=== PATIENT | female | born 1985 | race Caucasian/White ===

== ENCOUNTER 2018-09-22 23:36 | Emergency (ER) | payer SELFPAY ==
[2018-09-22 23:38] VITALS: PULSE 69; RESP 16; TEMP 36.6; O2SAT 100; BMI 27.3
[2018-09-22 23:47] VITALS: BP 113/83
--- NOTE | 2018-09-22 23:48 | RAD_ITS ---
HISTORY: TAILBONE PAIN FROM A FALL DOWN THE STAIRS A COUPLE DAYS AGO COMPARISON: None FINDINGS: XR Sacrum/Coccyx 3 views No fracture or acute osseous abnormality. No bony lesion seen. Mild anterior angulation of the coccyx, not unusual. SI joints appear preserved. No bony erosions. Multiple pelvic phleboliths. Chronic limbus type vertebra of the L5 vertebra. RAD/Sacrum-Coccyx min 2 Views IMPRESSION: Negative exam. No fracture seen. at 0136 Reported and signed by: Alexis Watts MD Electronically Signed: Alexis Watts, at 1:35 EDT Tel , Service support ,
--- NOTE | 2018-09-23 01:41 | ED.VISSUMM ---
- ER Visit Summary Date of Service: 09/23/18 Chief Complaint: Possible tailbone fracture History of Present Illness: The patient is a 33 F who presents because she is concerned she may have broken her tailbone. 5 days ago while going down the steps she fell. She landed into a seated position and then went all the way down the steps. She complains of isolated pain at her tailbone no other injuries. She denies any extremity injuries. No head injury. Physical Examination: Afebrile vitals unremarkable Heart regular rate and rhythm No respiratory distress Patient has coccygeal tenderness no lumbar tenderness Normal strength and sensation of the lower extremities Test Results: X-rays of the sacrum and coccyx were read as normal by radiology however on my review on the AP coccyx film I do believe there is a coccyx fracture. Emergency Department Course and Treatment: X-rays as above. On my review I do believe the patient has a coccyx fracture. This is managed supportively. She was advised on supportive care. She understands to return for new or worsening symptoms and was discharged home. Treatment Plan: [] Disposition: Discharge Impression: Coccyx fracture This note was generated with [email or web address] dictation software. It may contain incorrect words, spelling, and punctuation that were not noted in review of the chart prior to signing ED Disposition - Plan for ED Patient: Referrals: Mando Grover MD [Primary Care Provider] -
--- NOTE | 2018-09-23 01:43 | ED.DEP ---
ED Disposition - Plan for ED Patient: Instructions: ED Fx Coccyx Referrals: Mando Grover MD [Primary Care Provider] -
[2018-09-23 01:54] VITALS: BP 118/78; PULSE 89; RESP 16; O2SAT 100
== END 2018-09-23 01:55 | disposition home or self-care (01) ==
LOC: ED 23:56
PROVIDERS: Emergency Provider Emergency Medicine; Family Provider Family Medicine; PCP Family Medicine
DX: S32.2XXA Fracture of coccyx, initial encounter for closed fracture (principal); W10.9XXA Fall (on) (from) unspecified stairs and steps, initial encounter; Y93.9 Activity, unspecified; Y92.89 Other specified places as the place of occurrence of the external cause; Y99.9 Unspecified external cause status; Z72.0 Tobacco use
CPT/HCPCS: 72220; 99282

== ENCOUNTER → 2020-08-21 14:44 | Outpatient (CLI) | payer BC, SELFPAY ==
--- NOTE | 2020-08-21 14:49 | RAD_ITS ---
EXAM: XR LUMBOSACRAL SPINE COMPLETE WITH FLEXION/EXTENSION, 6 OR MORE VIEWS CLINICAL INDICATION: LOW BACK PAIN TECHNIQUE: Lateral, frontal, oblique and lateral flexion/extension views of the lumbar spine and sacrum. This report was created using [employer] report [employer] technology. COMPARISON: 08/23/2016. FINDINGS: VERTEBRAE: Grade 1 anterolisthesis of L5-S1 likely due to L5 spondylolysis similar on flexion, extension and neutral views. Normal variant limbus vertebral body of L5. Preserved vertebral body height. No fracture. Preservation of the normal lumbar lordosis. Mild levoscoliosis. DISC SPACES: Mild disc space narrowing at L5-S1 but the remaining disc levels are preserved. GASTROINTESTINAL TRACT: Unremarkable as visualized. Included bowel gas pattern is non-obstructive. OTHER FINDINGS: Lower level facet arthropathy. 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 Degenerative disc disease L5-S1 with facet arthropathy. Stable. Electronically Signed: Wes Rosales MD ([place]) at 14:14 EDT , Service support ,
== END ==
LOC: MTRAD 14:47
PROVIDERS: PCP Family Medicine; Referring Provider Family Medicine; Visit Provider Family Medicine
DX: M54.17 Radiculopathy, lumbosacral region (principal); M54.5 Low back pain
CPT/HCPCS: 72120

== ENCOUNTER 2020-10-20 09:30 | Outpatient (RCR) | payer BC, SELFPAY ==
--- NOTE | 2020-09-08 10:09 | HP.PTEVAL_ITS ---
Patient's Visit Information VINEET DUBOIS is a 35 year old F referred to Physical Therapy by Dr. Shadi Marie DO with a diagnosis of LUMBAR. Date of Evaluation: 09/08/20 Physical Therapist: Irina Bennett, PT, Cert MDT - Visit Plan Frequency: 2-3x /Week Duration: 4-6 Weeks Plan: POSTURE CORRECTION/STRENGTHENING, INSTRUCTION IN APPROPRIATE BODY MECHANICS AND ACTIVITY MODIFICATIONS. DLS STARTING WITH A NEUTRAL SPINE PROGRESSING ROM TOLERATED. SEBLE LE ROM, STRETCHING AND STRENGTHENING. HEP INSTRUCTION. 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 WORK DOES NOT INVOLVE LIFTING AND TWISTING BUT DOES HAVE TO BEND OVER CRIB. ONE OF CLIENTS IS A CHILD ON A VENT. Disability: NO. Present symptoms: LOW BACK PAIN. LEFT THIGH AND LEG PAIN. LEFT BUTTOCK AND WHOLE ENTIRE LEG GOES NUMB. NO RIGHT LE SX'S EXCEPT RIGHT BUTTOCK AREA PAIN. Present since: L LE SX'S STARTED ABOUT 18 MONTHS AGO. H/O LBP IS CHRONIC AND PAST EPISODES OF RIGHT LE SCIATICA. Pain Scale: WORST 6/10, LEAST 0/10. Currently: 0/10. Commenced as a result of: MOVING FURNITURE STARTED LOW BACK PROBLEMS APPROX 2012. Symptoms at onset: LOW BACK. Worse: STANDING, WALKING. Better: CROUCHING DOWN, SITTING, STRETCHING (YOGA, DURAL STRETCHING AND PIRIFORMIS STRETCH). Disturbed sleep: YES - ITS HARD TO GET COMFORTABLE. Previous history/Previous treatment: HAS BEEN SEEING A CHIROPRACTOR OFF AND ON FOR ABOUT 7 OR 8 YEARS NEEDED. NO BACK SURGERY. NO JAD'S. ONE EPISODE WITH PHYSICAL THERPAY. Treatment this episode: X-RAYS AND PT CONSULT. MRI ORDERED AND DENIED BY PT. ONE VISIT WITH DR. MARIE. Coughing/sneezing/straining: NEGATIVE. Gait: TIME AND DISTANCE LIMITED DUE TO PAIN. Difficulty initiating urinatin: NO. Accidents: NO. Unexplained weight loss: NO. Imagin08/23/20: GRADE 1 ANTERIOR LISTHESIS OF L5 ON S1 WITH SPONYLOLYSIS OF THE PARS INTERARTICULARIS OF THE L5 VERTEBRAE - STABLE. PATIENT REPORTS THAT WHEN THE DOCTORS OFFICE CALLED HER THEY TOLD HER SHE HAS DDD L5S1 WITH FACET ARTHROPATHY. MINIMAL LEVOSCOLIOSIS. PMH: MIGRAINE. OTHER: PATIENT REPORTS SHE FELL DOWN THE STEPS ABOUT 4 YEARS AGO AT HOME AND SHE FELL DOWN THE STEPS 2 YEARS AGO AND ONE DOCTOR TOLD HER SHE BROKE HER TAILBONE. PATIENT REPORTS THEY THINK THE FIRST FALL DOWN THE STEPS CAUSED THE BREAK IN HER BACK. PATIENT REPORTS THAT REPEAT X-RAYS SHOW IT HASN'T MOVED. - Objective Sitting/Standing Posture: POOR. SCOLIOSIS. RIGHT ILIAC CREST SLIGHTLY HIGHER THAN LEFT. Active Correction of posture: WORSE. Other Observations: INDEP GAIT AND TRANSFERS. Motor deficit: SEBLE LE STRENGTH 5/5 WITH MMT'ING EXCEPT HIPS 4/5. Sensory deficit: SEBLE LE LIGHT TOUCH SENSATION INTACT AND SYMMETRICAL. ROM deficit: TIGHT HIP FLEXORS. Reflexes: 2/3 SEBLE LE'S. Dural Signs: NEGATIVE SEBLE LE'S. Lumbar mvmt loss: flex - NIL. ext - MOD. R SG - MIN. L SG - MOD. Core strength: POOR. Palpation: NO ACUTE TENDERNESS WITH PALPATION OF THE LUMBAR, SACRAL OR HIP REGIONS. TREATMENT: NEUROMUSCULAR REEDUCATION - RETRAINING OF MVMT AND POSTURE FOR SITTING, LYING AND STANDING ACTIVITIES. - Goals Goal 1:: DECREASE C/O BACK AND LE'S. Goal Time Frame: 4-6 Weeks Goal 2:: IMPROVE PERSONAL CARE, LIFTING, WALKING, STANDING, SLEEP, SOCIAL LIFE AND EMPLOYMENT/HOMEMAKING FUNCTION. Goal Time Frame: 4-6 Weeks Goal 3:: INSTRUCT IN PROPHYLAXIS Goal Time Frame: 4-6 Weeks - Anticipated Interventions Patient/Client Instruction: Educate patient on: Condition, Plan of Care, Risk Factors, Benefits of Fitness Program For the Purpose of:: To improve self management Therapeutic Exercise to Include: Strength training, Body mechanics, Postural training, Flexibilty training, Neuromotor development, In an aquatic setting, Dynamic Lumbar Stabilization For the Purpose of:: To decrease pain, To improve muscle performance and motor function, To increase tolerance to activity/condition/position, To improve ability of physical actions for home/community/work/leisure TENS: Yes IF ES: Yes Cryotherapy (ice pack, ice massage): Yes Thermo therapy (hot pack): Yes Ultrasound (thermal/non thermal): Yes For the Purpose of:: To decrease pain, To improve muscle performance and motor function, To increase tolerance to activity/condition/position, To improve ability of physical actions for home/community/work/leisure Thank you for the opportunity to evaluate your patient. For Medicare and Medicare HMO plans, please review the plan of care and approve it. It will need to be FAXED BACK to us at [phone] for Medicare purposes. For Medicare only, by signing this I certify the plan of care. Please let me know if there are questions or concerns regarding this plan of care. Physician Signature: Date:
--- NOTE | 2020-10-20 10:34 | HP.PTDCSUM ---
It has been my pleasure to treat VINEET DUBOIS referred by Dr. Shadi Marie DO, with the diagnosis of LUMBAR for a total of 6 visit(s). Discharge Date: Please see the following information for a summary of their discharge status. Subjective: I AM DEFINATELY DOING BETTER. REPORTS HER L LEG DOES STILL GO NUMB BUT NOT MUCH. STATES SHE HAD A HARD 12 HOUR SHIFT AT WORK AND IT TOOK HER A LONG TIME TO RECOVER MONDAY. PATIENT REPORTS SHE IS DOING BETTER WITH MAKING HER HEP A HABBIT. STATES SHE IS A LOT BETTER AND FEELS SHE CAN CONTINUE ON HER OWN NOW. L BUTTOCK Pain Intensity (Out of 10): 0 % Improvement: 75 Objective/Function: PATIENT WAS SEEN TODAY FOR RE-ASSESSMENT OF PROGRESS TOWARD THE SET PT GOALS AND THE NEED FOR FURTHER PHYSICAL THERAPY VS READINESS FOR DISCHARGE. ALL GOALS MET. PATIENTS PAIN HAS DECREASED AND SHE IS INDEP WITH A HEP BUT SHE DOES STILL GET EPISODES OF BACK PAIN AND LLE SX'S INCLUDING L LE NUMBNESS RECENT 2 DAYS AGO. PHYSICIAN FOLLOW UP RECOMMENDED. PATIENT DEMONSTRATED/COMMUNICATED A GOOD UNDERSTANDING OF ALL INSTRUCTIONS AFTER GIVEN. UPON EXAM TODYA, PATIENT STILL HAS DECREASED LUMBAR ROM AND HIP STRENGTH INDICATED ON INITAL EVAL BUT HER SX'S ARE BETTER AND SHE IS TOLERATING A HEP WELL. Goal 1:: DECREASE C/O BACK AND LE'S. Goal Progress: Goal Met Goal 2:: IMPROVE PERSONAL CARE, LIFTING, WALKING, STANDING, SLEEP, SOCIAL LIFE AND EMPLOYMENT/HOMEMAKING FUNCTION. Goal Progress: Goal Met Goal 3:: INSTRUCT IN PROPHYLAXIS Goal Progress: Goal Met Plan: D/C TO HEP If there are questions or concerns regarding this patient's physical therapy, please feel free to call me at [phone]. Thank you for the referral of this patient. Sincerely, Irina Bennett, PT, Cert MDT
== END 2020-10-20 19:00 | disposition home or self-care (01) ==
LOC: PT 09:30
PROVIDERS: PCP Family Medicine; Referring Provider Family Medicine; Visit Provider Family Medicine
DX: M43.06 Spondylolysis, lumbar region (principal); M54.16 Radiculopathy, lumbar region
CPT/HCPCS: 97035; 97110; 97112; 97162; 97164; 97530

== ENCOUNTER 2020-10-22 18:00 | Emergency (ER) | payer BC, SELFPAY ==
[2020-10-22 18:01] VITALS: BP 126/72; PULSE 75; RESP 16; TEMP 35.9; O2SAT 98; BMI 27.3
--- NOTE | 2020-10-22 18:47 | ED.VIS.LOWEX ---
HPI History of Present Illness Chief Complaint: Laceration Informant: patient Occured/Mechanism Comment: Broke a glass Onset/Context/Timing Onset: Today Context: Sudden Onset Timing: Continuous Quality of Pain: Sharp Current Severity: Mild Maximum Severity: Mild Associated Symptoms Associated Symptoms: Negative for Parasthesia, Weakness and Loss of Funtion Narrative Narrative: The patient is an otherwise healthy 35-year-old female with unsure of last tetanus the presents to the emergency department laceration to right leg. Patient states she was in her kitchen. A glass fell from her countertop. She went to stop with her leg. The glass broke and incised her lower thigh. She had immediate bleeding but placed a dressing. She also suffered a superficial burn to her right hand when she placed on the stove. She denies other injury. She is otherwise been in her normal state of health. Tetanus Immunization: Unknown Prior similar symptoms: No Recent Illness/Hospitalization: No PFSH PFSH no medical history Home Medications ibuprofen 800 mg PO TID #20 tab 09/23/18 [Rx Last Taken Unknown] Allergy/AdvReac Type Severity Reaction Status Date / Time No Known Allergies Allergy Verified 10/22/20 18:03 no significant family history no surgical history Social History Smoking Status: Current every day smoker ROS ROS ED Constitutional Constitutional ED: Denies chills or fever(s) Eyes Eyes: Denies blurry vision or change in vision ENT ENT ED: Denies ear pain or sore throat Cardiovascular Cardiovascular: Denies chest pain or palpitations Respiratory/Chest Respiratory/Chest: Denies cough, dyspnea or dyspnea on exertion Gastrointestinal Gastrointestinal: Denies abdominal pain, nausea or vomiting Genitourinary Genitourinary ED: Denies dysuria or urinary frequency Musculoskeletal Musculoskeletal: Denies arthralgias or myalgias Integumentary Denies rash Neurologic Neurologic: Denies headache(s) or paresthesias Psychiatric Psychiatric: Denies anxiety or depression Endocrine Endocrinology: Denies polydipsia or polyuria Allergic/Immunologic Allergic/Immunologic ED: Denies urticaria EXAM Physical Exam Const Vital Signs: 10/22/20 18:01 Temperature 96.6 F L Temperature Source Temporal Pulse Rate 75 Respiratory Rate 16 Blood Pressure 126/72 H Blood Pressure Mean 90 Pulse Ox 98 Oxygen Delivery Method Room Air Positive well nourished and well developed General Appearance ED: well developed HEENT Reports normocephalic, head/scalp atraumatic and moist mucous membranes Eyes PERRL and EOMs intact bilaterally Neck no lymphadenopathy and supple General: Negative for tenderness Chest Wall inspection of chest normal Resp normal respiratory effort and clear to auscultation bilaterally Cardio regular rate, regular rhythm and no murmurs GI normal to inspection, nondistended, normoactive bowel sounds Palpation: Negative for tender, guarding or rebound tenderness present Back/Spine no CVA tenderness Cervical Spine: Negative for cervical spine tenderness Thoracic Spine / Upper Back: Negative for thoracic spinal tenderness Extremity normal to inspection Extremity Narrative: 2 cm laceration in the distal quadricep area. No active bleeding. No evidence of retained foreign body. General Extremety ED: Negative for tenderness Neuro oriented x3 and CN's II-XII intact bilaterally Neuro Narrative: No focal deficits appreciated. Sensorium / Orientation: alert Psych mental status grossly normal Skin no rashes or lesions noted, no wounds and skin turgor normal MDM MDM MDM Narrative Medical decision making narrative: Patient presents laceration to the leg. There is no active bleeding. The patient's tetanus was updated. The wound was anesthetized with lidocaine without epinephrine. It was irrigated. It was explored. There is no evidence of retained foreign body. The wound was closed with 4 simple erupted suture. The patient tolerated this without issue. She was counseled on local wound care. She will be discharged home. Impression 1. 3 cm right leg laceration with repair Procedures Lacerations Lac: Length: 36 in Depth: Skin Shape: Linear Prep: Sterile Conditions and Shure-Clens Laceration repair: Lidocaine and Skin sutures Number of Sutures/[place]: 4 Suture Information: Vicryl and 4-0 Discharge Plan Triage Chief Complaint: Laceration ED Provider: Anurag Mendez Dx/Rx/DC Orders Instructions: ED Laceration: All Closures Prescriptions: No Action ibuprofen 800 MG tablet 800 mg PO TID Qty: 20 RF: 0 Primary Care Provider: Shadi Marie Referrals: Shadi Marie DO [Primary Care Provider] - 10 Day for suture removal
[2020-10-22] MEDS: Lidocaine 1% (20 ml mdv) 20 ML Vial INFILT (18:56)
[2020-10-22] MEDS: Diphth,Pertuss(Acell),Tet Vac 0.5 ML Vial IM (18:56)
== END 2020-10-22 19:49 | disposition home or self-care (01) ==
LOC: ED 19:27
PROVIDERS: Emergency Provider Emergency Medicine; PCP Family Medicine
DX: S71.111A Laceration without foreign body, right thigh, initial encounter (principal); F17.200 Nicotine dependence, unspecified, uncomplicated; Z23 Encounter for immunization; W25.XXXA Contact with sharp glass, initial encounter; Y93.89 Activity, other specified; Y92.000 Kitchen of unspecified non-institutional (private) residence as the place of occurrence of the external cause; Y99.8 Other external cause status
CPT/HCPCS: 12002; 90715; 99283

== ENCOUNTER → 2021-04-22 07:31 | Outpatient (CLI) | payer BC, SELFPAY ==
--- NOTE | 2021-04-22 07:39 | MRI_ITS ---
STUDY: MRI LUMBAR SPINE WITHOUT CONTRAST REASON FOR EXAM: Female, 35 years old. LT LEG RADICULOPATHY TECHNIQUE: Standardized fat and water weighted pulse sequences were obtained in the sagittal and axial planes. COMPARISON: X-ray 08/21/2020 FINDINGS: T12-L1: Normal endplates. Normal disc height, hydration and morphology. Normal bilateral facet joints. Normal central canal and bilateral lateral recesses. Normal bilateral intervertebral neural foramina. Normal lumbar lordosis. Mild levoscoliosis centered at L2/L3. Normal conus medullaris that terminates at the L1-2: Normal endplates. Normal disc height, hydration and morphology. Normal bilateral facet joints. Normal central canal and bilateral lateral recesses. Normal bilateral intervertebral neural foramina. L2-3: Normal endplates. Normal disc height, hydration and morphology. Normal bilateral facet joints. Normal central canal and bilateral lateral recesses. Normal bilateral intervertebral neural foramina. L3-4: Normal endplates. Normal disc height, hydration and morphology. Normal bilateral facet joints. Normal central canal and bilateral lateral recesses. Normal bilateral intervertebral neural foramina. L4-5: Moderate bilateral facet hypertrophy and ligament flavum hypertrophy. Large broad disc protrusion produces severe spinal stenosis with severe bilateral lateral recess stenosis with effacement of the L4 nerve roots bilaterally and moderate bilateral neural foraminal stenosis with abutment of the L4 nerve roots bilaterally. L5-S1: Moderate bilateral facet hypertrophy and ligament flavum hypertrophy. Moderate broad disc protrusion produces severe spinal stenosis with severe bilateral lateral recess stenosis with effacement S1 nerve roots bilaterally and moderate bilateral neural foraminal stenosis with abutment of the L5 nerve roots bilaterally. Normal visualized sacral ala. Normal visualized paraspinous soft tissue structures. MRI/Spine Lumbar (Routine) IMPRESSION: Mild levoscoliosis with degenerative disc disease in lower lumbar spine as described above. Electronically Signed: Brodie Boswell MD at 9:46 EST Tel , Service support ,
== END ==
PROVIDERS: PCP Family Medicine; Referring Provider Family Medicine; Visit Provider Family Medicine
DX: M54.16 Radiculopathy, lumbar region (principal)
CPT/HCPCS: 72148